=== PATIENT | male | born 1940 | race African-American/Black ===

== ENCOUNTER 2019-12-06 18:05 | Inpatient (IN) | payer OTHER, MEDICAID ==
[~2019-12-06] VITALS: Ht 182.9 cm; Wt 59.0 kg
[2019-12-06] MEDS ORDERED: ALTEPLASE 100MG/VIAL IV STA (19:10)
[2019-12-06 19:20] LABS: EOSINOPHILS % 1.8 % (0.0-5.0); MEAN CORPUSCULAR HEMOGLOBIN 23.5 pg (28.0-32.0); MEAN CORPUSCULAR VOLUME 75.1 fL (80.0-94.0); MEAN PLATELET VOLUME 8.6 fl (7.4-10.4); MONOCYTES % 9.9 % (2.0-8.0); NEUTROPHILS % 74.3 % (40.0-76.0); PLATELET 176 x1000/uL (130-400); RED BLOOD CELL COUNT 2.67 mill/uL (4.7-6.1); RED CELL DISTRIBUTION WIDTH 26.9 % (11.6-14.6)
[2019-12-06 19:25] LABS: HEMOGLOBIN. 6.3 g/dL (14.0-18.0)
[2019-12-06 19:28] LABS: CHLORIDE 117 mEq/L (98-107)
[2019-12-06 19:30] LABS: INR 1.1; PROTHROMBIN TIME 11.4 sec (9.6-11.0)
[2019-12-06] MEDS ORDERED: ALTEPLASE IV SCH (19:30)
[2019-12-06] MEDS ORDERED: ALTEPLASE 100MG/VIAL IV NR (19:30)
[2019-12-06 19:34] LABS: ETHANOL BLOOD < 10 mg/dL
[2019-12-06 19:37] LABS: LDL CHOLESTEROL 48 mg/dL (5-100)
[2019-12-06] MEDS ORDERED: *NO ASPIRIN X 24 HOURS XX SCH (19:45)
[2019-12-06 20:28] LABS: PLATELET ESTIMATE NORMAL
[2019-12-06] MEDS ORDERED: IOHEXOL-350 100 ML BOTTLE ONE (23:22)
[2019-12-07] VITALS (9 sets, daily range): BP systolic 105–161; BP diastolic 56–81
[2019-12-07] MEDS ORDERED: DIPHENHYDRAMINE 50MG/ML VIAL IV PRN (00:45)
[2019-12-07] MEDS ORDERED: ACETAMINOPHEN 325MG TABLET PO PRN ×2 (00:45)
[2019-12-07] MEDS ORDERED: ONDANSETRON HCL 4MG/2ML INJ IV PRN (00:45)
[2019-12-07] MEDS: SODIUM CHLORIDE 0.9% INJ 3ML FLUSH IVF SCH ×3 (06:27→21:53)
[2019-12-07 11:00] LABS: CLARITY URINE CLEAR (CLEAR); COLOR URINE YELLOW (YELLOW); KETONES URINE NEGATIVE (NEGATIVE); LEUKOCYTE ESTERASE URINE NEGATIVE (NEGATIVE); NITRITE URINE NEGATIVE (NEGATIVE); OCCULT BLOOD URINE NEGATIVE (NEGATIVE); PROTEIN URINE TRACE (NEGATIVE)
[2019-12-07 11:16] LABS: *AMPHETAMINES SCREEN URINE NEGATIVE (NEGATIVE); *BARBITURATES SCREEN URINE NEGATIVE (NEGATIVE); *BENZODIAZEPINES SCREEN URINE NEGATIVE (NEGATIVE); *COCAINE SCREEN URINE NEGATIVE (NEGATIVE); METHADONE URINE SCREEN NEGATIVE (NEGATIVE)
[2019-12-07 11:17] LABS: CANNABINOID URINE SCREEN NEGATIVE (NEGATIVE); OPIATES URINE SCREEN NEGATIVE (NEGATIVE); PHENCYCLIDINE URINE SCREEN NEGATIVE (NEGATIVE)
[2019-12-07 11:28] LABS: BASOPHILS % 0.8 % (0.0-2.0); EOSINOPHILS % 1.8 % (0.0-5.0); LYMPHOCYTES % 11.4 % (20.0-50.0); MEAN CORPUSCULAR HEMOGLOBIN 23.8 pg (28.0-32.0); MEAN CORPUSCULAR VOLUME 76.6 fL (80.0-94.0); MEAN PLATELET VOLUME 8.5 fl (7.4-10.4); MONOCYTES % 11.3 % (2.0-8.0); NEUTROPHILS % 74.7 % (40.0-76.0); PLATELET 173 x1000/uL (130-400); RED BLOOD CELL COUNT 2.77 mill/uL (4.7-6.1); RED CELL DISTRIBUTION WIDTH 27.3 % (11.6-14.6)
[2019-12-07 11:37] LABS: HEMATOCRIT. 21.2 % (42.0-52.0); HEMOGLOBIN. 6.6 g/dL (14.0-18.0)
[2019-12-07 11:38] LABS: INR 1.1; PARTIAL THROMBOPLASTIN TIME 31.2 sec (23.4-31.0); PROTHROMBIN TIME 11.9 sec (9.6-11.0)
[2019-12-07 12:46] LABS: TOTAL IRON BINDING CAPACITY 211 ug/dL (250-450)
[2019-12-07] MEDS ORDERED: ASPI-1497 PO (15:19)
[2019-12-07] MEDS ORDERED: ATOR80TA PO (15:20)
[2019-12-07] MEDS ORDERED: DOCU-138 MT (15:20)
[2019-12-07] MEDS ORDERED: DOCU-138 PO (15:20)
[2019-12-07] MEDS ORDERED: HALOPERIDOL LACTATE 5MG/ML VIAL IM PRN (17:00)
[2019-12-07] MEDS ORDERED: LORAZEPAM 2MG/ML CPJ IV NR (18:45)
[2019-12-07] MEDS: DIPHENHYDRAMINE 50MG/ML VIAL IV NR (20:36)
[2019-12-07] MEDS ORDERED: ZOLPIDEM TARTRATE 5MG TABLET PO PRN (21:00)
[2019-12-08 04:00] VITALS: BP 133/78
[2019-12-08] MEDS: SODIUM CHLORIDE 0.9% INJ 3ML FLUSH IVF SCH ×3 (06:00→22:00)
[2019-12-08 06:44] LABS: HEMATOCRIT 25.8 % (42.0-52.0); HEMOGLOBIN 8.2 g/dL (14.0-18.0); MEAN CORPUSCULAR VOLUME 78.3 fL (80.0-94.0); PLATELET 191 x1000/uL (130-400); RED CELL DISTRIBUTION WIDTH 27.5 % (11.6-14.6)
[2019-12-08 07:03] LABS: VITAMIN B12 SERUM 443 pg/mL (211-911)
[2019-12-08 08:00] VITALS: BP 155/58
[2019-12-08] MEDS ORDERED: CYANOCOBALAMIN 1000MCG/ML VIAL IM NR (10:00)
[2019-12-08] MEDS ORDERED: IRON SUCROSE COMPLEX 100 MG/5 ML ML IV SCH (11:30)
[2019-12-08 11:53] VITALS: BP 152/56
[2019-12-08 16:06] VITALS: BP 154/68
[2019-12-08] MEDS: DIPHENHYDRAMINE 50MG/ML VIAL IV NR (19:18)
[2019-12-08 19:54] VITALS: BP 146/73
[2019-12-08 20:00] VITALS: BP 146/73
[2019-12-09] MEDS ORDERED: MULTIVITAMINS,THER W-MINERALS TABLET PO SCH (09:00)
== END 2019-12-08 21:25 | DRG 62 ==
LOC: ER 18:05 → EDBEDREQSVC 20:54 → EDBEDREQ 20:54 → EDBEDREQTM 20:54 → EDBEDREQSVC 12-07 12:49 → ENRESERV 12-07 13:00 → 6WST 12-07 13:32
PROVIDERS: ADMIT Internal Medicine; ATTEND Internal Medicine
PROC: 3E03317 Introduction of Other Thrombolytic into Peripheral Vein, Percutaneous Approach (ICD-10-PCS; principal; 2019-12-07)
PROC: 30233N1 Transfusion of Nonautologous Red Blood Cells into Peripheral Vein, Percutaneous Approach (ICD-10-PCS; 2019-12-07)
DX: I63.81 Other cerebral infarction due to occlusion or stenosis of small artery (principal); F23 Brief psychotic disorder; E44.0 Moderate protein-calorie malnutrition; Z68.1 Body mass index [BMI] 19.9 or less, adult; D64.9 Anemia, unspecified; E78.00 Pure hypercholesterolemia, unspecified; E78.5 Hyperlipidemia, unspecified; F03.90 Unspecified dementia, unspecified severity, without behavioral disturbance, psychotic disturbance, mood disturbance, and anxiety; F17.210 Nicotine dependence, cigarettes, uncomplicated; I25.10 Atherosclerotic heart disease of native coronary artery without angina pectoris; N18.9 Chronic kidney disease, unspecified; I12.9 Hypertensive chronic kidney disease with stage 1 through stage 4 chronic kidney disease, or unspecified chronic kidney disease; J43.2 Centrilobular emphysema; I25.2 Old myocardial infarction; Z88.8 Allergy status to other drugs, medicaments and biological substances; Z79.899 Other long term (current) drug therapy; G83.24 Monoplegia of upper limb affecting left nondominant side
CPT/HCPCS: 36415; 70496; 70498; 70551; 71045; 80053; 80061; 80305; 80320; 81003; 82607; 83540; 83550; 83721; 84443; 84484; 85025; 85027; 85384; 86850; 86900; 86920; 92523; 93005; 97162; 97166; 99291; J1200; J1630; J2060; J2997; J3420; P9016; Q9967; G0480